=== PATIENT | male | born 1965 | race Hispanic/Latino ===

== ENCOUNTER 2019-01-12 10:28 | Emergency (ER) | payer SELFPAY ==
[2019-01-12] MEDS ORDERED: CEFAZOLIN SODIUM 1 GM/VIAL ONE (12:32)
[2019-01-12] MEDS ORDERED: LIDOCAINE 1% 20 ML MDV ONE (12:33)
[2019-01-12] MEDS ORDERED: TETANUS & DIPHTHERIA TOX,ADULT 0.5 ML VIAL ONE (12:33)
[2019-01-12] MEDS ORDERED: WATER FOR INJ,STERILE 10 ML ONE (12:33)
[2019-01-12] MEDS ORDERED: SMZ./TMP. 800/160 MG TABLET ONE (12:33)
--- NOTE | 2019-01-12 12:39 | RAD REPORT ---
EXAM DESCRIPTION: RAD - Hand Right 3 View - 01/12/2019 12:30 pm CLINICAL HISTORY: PAIN Laceration COMPARISON: No comparisons FINDINGS: Prominent soft tissue swelling affects the second finger. Small radiodensity is seen proje cting along the palmar aspect of the finger at the level of the middle phalanx which may be a small f oreign body. No fracture seen.
--- NOTE | 2019-01-12 13:27 | ER ---
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 Transition of care: patient was not received from another setting of care. Onset of symptoms was January 12, 2019. Risk Assessment: Do you want to hurt yourself or someone else? Patient reports no desire to harm self or others. Initial Sepsis Screen: Does the patient meet any 2 criteria? No. Patient's initial sepsis screen is negative. Does the patient have a suspected source of infection? No. Patient's initial sepsis screen is negative. Care prior to arrival: None. 11:25 Method Of Arrival: Ambulatory iw 11:25 Acuity: ELIU 4 iw Triage Assessment: 12:05 General: Appears in no apparent distress. comfortable, Behavior is calm, cooperative, bp appropriate for age. Pain: Complains of pain in right hand. Historical: - Allergies: 11:27 No Known Allergies; iw - Home Meds: 11:27 None [Active]; iw - PMHx: 11:27 None; iw - PSHx: 11:27 None; iw - Immunization history:: Adult Immunizations Last tetanus immunization: Last tetanus immunization: unknown. - Social history:: Smoking status: Patient uses tobacco products. - Ebola Screening: : Patient negative for fever greater than or equal to 101.5 degrees Fahrenheit, and additional compatible Ebola Virus Disease symptoms Patient denies exposure to infectious person Patient denies travel to an Ebola-affected area in the 21 days before illness onset No symptoms or risks identified at this time. - Family history:: not pertinent. Screenin:30 Abuse screen: Denies threats or abuse. Denies injuries from another. Nutritional bp screening: No deficits noted. Tuberculosis screening: No symptoms or risk factors identified. Fall Risk None identified. 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 bp 12:33 Reassessment: LAC REPAIR PENDING, OTHER ORDERS COMPLETED. bp 14:02 Reassessment: PT D/C HOME AMBULATORY WITH FAMILY, DX WITH FINGER LAC. bp Vital Signs: 11:27 BP 122 / 79; Pulse 61; Resp 16; Temp 98.0; Pulse Ox 100% ; Weight 113.4 kg; Height 5 iw ft. 8 in. (172.72 cm); Pain 5/10; 12:30 BP 103 / 64; Pulse 52; Resp 14; Pulse Ox 98% ; bp 14:03 BP 102 / 77; Pulse 53; Resp 14; Pulse Ox 98% ; bp 11:27 Body Mass Index 38.01 (113.40 kg, 172.72 cm) iw ED Course: 10:31 Patient arrived in ED. mr 11:27 Triage completed. iw 11:27 Arm band placed on. iw 11:30 Patient has correct armband on for positive identification. Bed in low position. Call bp light in reach. Side rails up X2. Adult w/ patient. 11:56 Davon Ojeda, BELKYS is Primary Nurse. bp 11:57 Damien Levi MD is Attending Physician. hellen 12:29 X-ray completed. Portable x-ray completed in exam room. Patient tolerated procedure jb2 well. 12:31 Hand Right 3 View XRAY In Process Unspecified. EDMS 13:00 Assist provider with laceration repair on MCP of right index finger that was 2.5 cm. or bp less using sutures. Set up tray. Performed by Damien Levi MD Dressed with [place]. Patient did not have IV access during this emergency room visit. 13:26 Julius Lipscomb MD is Referral Physician. hellen 13:35 Dressings: [place] x 1 right hand and MCP of right index finger non-adherent dressing. 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 Exp: bp 12/09/2020. Lot #: [id number]. } Route: IM; Site: left deltoid; 12:32 Follow up: Response: No adverse reaction bp 12:15 Drug: Ancef 1 grams Route: IM; Site: left deltoid; bp 12:32 Follow up: Response: No adverse reaction bp 12:15 Drug: Bactrim (160 mg-800 mg (DS) 1 tablet Route: PO; bp 12:32 Follow up: Response: No adverse reaction bp 12:15 Drug: Lidocaine (2 %) 8 ml {Note: AT B/S.} Volume: 5 ml; Route: Infiltration; bp Outcome: 13:26 Discharge ordered by . hellen 14:03 Discharged to home ambulatory, with family. bp 14:03 Condition: stable 14:03 Discharge instructions given to patient, Instructed on discharge instructions, follow up and referral plans. medication usage, Demonstrated understanding of instructions, follow-up care, medications, Prescriptions given X 3. 14:04 Patient left the ED. bp Signatures: Dispatcher [employer] EDMS Damien Levi MD MD cha Rivera, Hope [email or web address] Cari Gee, RN RN Dana Weathers [facility] Davon Ojeda RN RN bp
--- NOTE | 2019-01-12 13:27 | EDPHYS ---
Physician Documentation [facility] Name: Michael Hauser Age: 53 yrs Sex: Male : 1965 Arrival Date: 01/12/2019 Time: 10:31 Bed 16 Private MD: BRIELLE Physician Damien Levi HPI: 01/12 12:01 This 53 yrs old Male presents to ER via Ambulatory with complaints of finger hellen lacration. 12:01 The patient or guardian reports decreased range of motion, injury, a laceration, pain. hellen The complaints affect the MCP of right index finger. Context: The problem was sustained at home. Onset: The symptoms/episode began/occurred yesterday, 1 day(s) ago. Modifying factors: The symptoms are alleviated by elevation, the symptoms are aggravated by movement, dependent position. Associated signs and symptoms: The patient has no apparent associated signs or symptoms. Severity of symptoms: At their worst the symptoms were moderate, in the emergency department the symptoms are unchanged. The patient has experienced a previous episode. Historical: - Allergies: 11:27 No Known Allergies; iw - Home Meds: 11:27 None [Active]; iw - PMHx: 11:27 None; iw - PSHx: 11:27 None; iw - Immunization history:: Adult Immunizations Last tetanus immunization: Last tetanus immunization: unknown. - Social history:: Smoking status: Patient uses tobacco products. - Ebola Screening: : Patient negative for fever greater than or equal to 101.5 degrees Fahrenheit, and additional compatible Ebola Virus Disease symptoms Patient denies exposure to infectious person Patient denies travel to an Ebola-affected area in the 21 days before illness onset No symptoms or risks identified at this time. - Family history:: not pertinent. ROS: 12:01 Constitutional: Negative for fever, chills, and weight loss, Eyes: Negative for injury, hellen pain, redness, and discharge, ENT: Negative for injury, pain, and discharge, Neck: Negative for injury, pain, and swelling, Cardiovascular: Negative for chest pain, palpitations, and edema, Respiratory: Negative for shortness of breath, cough, wheezing, and pleuritic chest pain, Abdomen/GI: Negative for abdominal pain, nausea, vomiting, diarrhea, and constipation, Back: Negative for injury and pain, : Negative for injury, bleeding, discharge, and swelling, Skin: Negative for injury, rash, and discoloration, Neuro: Negative for headache, weakness, numbness, tingling, and seizure, Psych: Negative for depression, anxiety, suicide ideation, homicidal ideation, and hallucinations, Allergy/Immunology: Negative for hives, rash, and allergies, Endocrine: Negative for neck swelling, polydipsia, polyuria, polyphagia, and marked weight changes, Hematologic/Lymphatic: Negative for swollen nodes, abnormal bleeding, and unusual bruising. 12:01 MS/extremity: Positive for injury or acute deformity, laceration, pain, of the dorsal aspect of proximal phalanx of right index finger. Exam: 12:01 Constitutional: This is a well developed, well nourished patient who is awake, alert, hellen and in no acute distress. Head/Face: Normocephalic, atraumatic. Eyes: Pupils equal round and reactive to light, extra-ocular motions intact. Lids and lashes normal. Conjunctiva and sclera are non-icteric and not injected. Cornea within normal limits. Periorbital areas with no swelling, redness, or edema. ENT: Nares patent. No nasal discharge, no septal abnormalities noted. Tympanic membranes are normal and external auditory canals are clear. Oropharynx with no redness, swelling, or masses, exudates, or evidence of obstruction, uvula midline. Mucous membranes moist. Neck: Trachea midline, no thyromegaly or masses palpated, and no cervical lymphadenopathy. Supple, full range of motion without nuchal rigidity, or vertebral point tenderness. No Meningismus. Chest/axilla: Normal chest wall appearance and motion. Nontender with no deformity. No lesions are appreciated. Cardiovascular: Regular rate and rhythm with a normal S1 and S2. No gallops, murmurs, or rubs. Normal PMI, no JVD. No pulse deficits. Respiratory: Lungs have equal breath sounds bilaterally, clear to auscultation and percussion. No rales, rhonchi or wheezes noted. No increased work of breathing, no retractions or nasal flaring. Abdomen/GI: Soft, non-tender, with normal bowel sounds. No distension or tympany. No guarding or rebound. No evidence of tenderness throughout. Back: No spinal tenderness. No costovertebral tenderness. Full range of motion. Male : Normal genitalia with no discharge or lesions. MS/ Extremity: Pulses equal, no cyanosis. Neurovascular intact. Full, normal range of motion. Neuro: Awake and alert, GCS 15, oriented to person, place, time, and situation. Cranial nerves II-XII grossly intact. Motor strength 5/5 in all extremities. Sensory grossly intact. Cerebellar exam normal. Normal gait. Psych: Awake, alert, with orientation to person, place and time. Behavior, mood, and affect are within normal limits. 12:01 Skin: injury, avulsion(s), laceration(s), the wound is approximately 2.5 cm(s), with a depth of .25 cm(s), of the dorsal aspect of proximal phalanx of right index finger, that can be described as Vital Signs: 11:27 BP 122 / 79; Pulse 61; Resp 16; Temp 98.0; Pulse Ox 100% ; Weight 113.4 kg; Height 5 iw ft. 8 in. (172.72 cm); Pain 5/10; 12:30 BP 103 / 64; Pulse 52; Resp 14; Pulse Ox 98% ; bp 14:03 BP 102 / 77; Pulse 53; Resp 14; Pulse Ox 98% ; bp 11:27 Body Mass Index 38.01 (113.40 kg, 172.72 cm) iw Laceration: 12:01 Wound Repair of 3cm ( 1.2in ) subcutaneous laceration to dorsal aspect of proximal hellen phalanx of right index finger and MCP of right index finger. Irregularly shaped.. Skin/tissue flap noted.. Distal neuro/vascular/tendon intact. Anesthesia: Digital block administered with 8 mls of 1% lidocaine. Wound prep: Extensive cleansing with betadine by md. Skin closed with 4 5-0 Prolene using interrupted sutures and sterile technique. Dressed with Neosporin, non-adherent dressing. Patient tolerated well. MDM: 11:57 Patient medically screened. [facility] 12:05 Data reviewed: vital signs, nurses notes, radiologic studies, plain films. 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 Exp: bp 12/09/2020. Lot #: [id number]. } Route: IM; Site: left deltoid; 12:32 Follow up: Response: No adverse reaction bp 12:15 Drug: Ancef 1 grams Route: IM; Site: left deltoid; bp 12:32 Follow up: Response: No adverse reaction bp 12:15 Drug: Bactrim (160 mg-800 mg (DS) 1 tablet Route: PO; bp 12:32 Follow up: Response: No adverse reaction bp 12:15 Drug: Lidocaine (2 %) 8 ml {Note: AT B/S.} Volume: 5 ml; Route: Infiltration; bp Disposition: 01/12/19 13:26 Discharged to Home. Impression: Laceration without foreign body of right hand - medial index finger, greater 18 hours. - Condition is Stable. - Discharge Instructions: Laceration Care, Adult, Laceration Care, Adult, [id number]. - Prescriptions for Keflex 500 mg Oral Capsule - take 1 capsule by ORAL route every 6 hours for 10 days; 40 capsule. Tylenol- Codeine #3 300-30 mg Oral Tablet - take 2 tablet by ORAL route every 6 hours As needed; 30 tablet. Bactrim DS 800- 160 mg Oral Tablet - take 1 tablet by ORAL route every 12 hours for 10 days; 20 tablet. - Medication Reconciliation Form, Thank You Letter, Antibiotic Education, Prescription Opioid Use form. - Follow up: Private Physician; When: 1 - 2 days; Reason: Recheck today's complaints, Re-evaluation by your physician. Follow up: Julius Lipscomb; When: 1 - 2 days; Reason: Recheck today's complaints, Re-evaluation by your physician. - Problem is new. - Symptoms have improved. Signatures: Dispatcher [employer] EDDamien Carroll MD MD cha Williams, Irene, Davon Cabrera RN, RN RN bp Corrections: (The following items were deleted from the chart) 14:04 13:26 01/12/2019 13:26 Discharged to Home. Impression: Laceration without foreign body bp of right hand - medial index finger, greater 18 hours. Condition is Stable. Discharge Instructions: Laceration Care, Adult, Laceration Care, Adult, [id number]. Prescriptions for Keflex 500 mg Oral Capsule - take 1 capsule by ORAL route every 6 hours for 10 days; 40 capsule, Tylenol-Codeine #3 300-30 mg Oral Tablet - take 2 tablet by ORAL route every 6 hours As needed; 30 tablet, Bactrim DS 800-160 mg Oral Tablet - take 1 tablet by ORAL route every 12 hours for 10 days; 20 tablet. and Forms are Medication Reconciliation Form, Thank You Letter, Antibiotic Education, Prescription Opioid Use. Follow up: Private Physician; When: 1 - 2 days; Reason: Recheck today's complaints, Re-evaluation by your physician. Follow up: Julius Lipscomb; When: 1 - 2 days; Reason: Recheck today's complaints, Re-evaluation by your physician. Problem is new. Symptoms have improved. hellen
== END 2019-01-12 14:04 | disposition home or self-care (01) ==
LOC: ER 10:28
PROC: 0JQJ0ZZ Repair Right Hand Subcutaneous Tissue and Fascia, Open Approach (ICD-10-PCS; principal; 2019-01-12)
DX: S61.210A Laceration without foreign body of right index finger without damage to nail, initial encounter (principal); W45.8XXA Other foreign body or object entering through skin, initial encounter; Y93.9 Activity, unspecified; Y92.009 Unspecified place in unspecified non-institutional (private) residence as the place of occurrence of the external cause; Z23 Encounter for immunization; Z72.0 Tobacco use
CPT/HCPCS: 90714; 96372; 99284; J0690

== ENCOUNTER 2021-03-22 21:43 | Emergency (ER) | payer SELFPAY ==
[2021-03-23 01:23] LABS: Absolute Lymphocytes (CBC) 1.6 K/uL (0.7-4.9); Basophils % 0.9 % (0-1.3); Hematocrit 43.9 % (39.6-49.0); Lymphocytes % 22.4 % (15.3-44.8); MPV 9.5 fL (7.6-11.3); RBC Red Blood Cell Count 4.72 M/uL (4.33-5.43)
[2021-03-23 01:26] LABS: Protime INR 0.98
[2021-03-23 01:38] LABS: ALT/SGPT 32 U/L (12-78); AST/SGOT 20 U/L (15-37); Albumin 3.9 g/dL (3.4-5.0); Alkaline Phosphatase 94 U/L (45-117); BUN Blood Urea Nitrogen 21 mg/dL (7-18); Bicarbonate 28 mmol/L (21-32); Bilirubin Direct < 0.1 mg/dL (0-0.2); Bilirubin Total 0.4 mg/dL (0.2-1.0); Glucose Level 110 mg/dL (74-106); Magnesium 2.8 mg/dL (1.8-2.4); NT PRO-BNP 16 pg/mL (<125); Potassium 4.5 mmol/L (3.5-5.1); Protein, Total 7.6 g/dL (6.4-8.2); Sodium Level 145 mmol/L (136-145); Troponin (Emerg Dept Use Only) < 0.02 ng/mL (0.0-0.045)
[2021-03-23] MEDS ORDERED: MECLIZINE HCL 12.5 MG TAB ONE (03:46)
--- NOTE | 2021-03-23 04:04 | EDPHYS ---
Physician Documentation [facility] Name: Michael Hauser Age: 55 yrs Sex: Male : 1965 Arrival Date: 03/22/2021 Time: 21:44 Bed 15 Private MD: ED Physician Billy Raya HPI: 03/23 01:18 This 55 yrs old Male presents to ER via Ambulatory with complaints of mh7 Dizziness. 01:18 The patient presents with dizziness, sense of spinning. Onset: The symptoms/episode mh7 began/occurred 1 week(s) ago. Context: occurred at home, occurred while the patient was sitting, just prior to the episode the patient experienced no apparent symptoms. Modifying factors: The symptoms are alleviated by nothing, the symptoms are aggravated by movement of head, changing position. 01:20 Associated signs and symptoms: Pertinent positives: abdominal pain, headache, mh7 generalized weakness, Pertinent negatives: agitation, ataxia, blurred vision, chest pain, combativeness, confusion, diaphoresis, focal weakness, head injury, nausea, near-syncope, numbness, palpitations, , seizure, shortness of breath, syncope, tingling, vomiting. Severity of symptoms: At their worst the symptoms were moderate 2 day(s) ago, in the emergency department the symptoms are unchanged. Patient's baseline: Neuro: alert and fully oriented, Motor: no deficits, Ambulation: walks without assistance, Speech: normal. Historical: - Allergies: 03/22 23:07 No Known Allergies; iw - Home Meds: 23:07 None [Active]; iw - PMHx: 23:07 None; iw - PSHx: 23:07 None; iw - Immunization history:: Adult Immunizations not up to date. - Social history:: Smoking status: Patient reports the use of cigarette tobacco products, denies chronic smoking, but will smoke occasionally. ROS: 03/23 01:20 Constitutional: Negative for fever, chills, and weight loss, Eyes: Negative for injury, mh7 pain, redness, and discharge, ENT: Negative for injury, pain, and discharge, Neck: Negative for injury, pain, and swelling, Cardiovascular: Negative for chest pain, palpitations, and edema, Respiratory: Negative for shortness of breath, cough, wheezing, and pleuritic chest pain, Abdomen/GI: Negative for abdominal pain, nausea, vomiting, diarrhea, and constipation, Back: Negative for injury and pain, : Negative for injury, bleeding, discharge, and swelling, MS/Extremity: Negative for injury and deformity, Skin: Negative for injury, rash, and discoloration, Psych: Negative for depression, anxiety, suicide ideation, homicidal ideation, and hallucinations, Allergy/Immunology: Negative for hives, rash, and allergies, Endocrine: Negative for neck swelling, polydipsia, polyuria, polyphagia, and marked weight changes, Hematologic/Lymphatic: Negative for swollen nodes, abnormal bleeding, and unusual bruising. Exam: 01:20 Constitutional: This is a well developed, well nourished patient who is awake, alert, mh7 and in no acute distress. Head/Face: Normocephalic, atraumatic. Eyes: Pupils equal round and reactive to light, extra-ocular motions intact. Lids and lashes normal. Conjunctiva and sclera are non-icteric and not injected. Cornea within normal limits. Periorbital areas with no swelling, redness, or edema. ENT: Nares patent. No nasal discharge, no septal abnormalities noted. Tympanic membranes are normal and external auditory canals are clear. Oropharynx with no redness, swelling, or masses, exudates, or evidence of obstruction, uvula midline. Mucous membranes moist. Neck: Trachea midline, no thyromegaly or masses palpated, and no cervical lymphadenopathy. Supple, full range of motion without nuchal rigidity, or vertebral point tenderness. No Meningismus. Chest/axilla: Normal chest wall appearance and motion. Nontender with no deformity. No lesions are appreciated. Cardiovascular: Regular rate and rhythm with a normal S1 and S2. No gallops, murmurs, or rubs. Normal PMI, no JVD. No pulse deficits. Respiratory: Lungs have equal breath sounds bilaterally, clear to auscultation and percussion. No rales, rhonchi or wheezes noted. No increased work of breathing, no retractions or nasal flaring. 01:20 Back: No spinal tenderness. No costovertebral tenderness. Full range of motion. Skin: Warm, dry with normal turgor. Normal color with no rashes, no lesions, and no evidence of cellulitis. MS/ Extremity: Pulses equal, no cyanosis. Neurovascular intact. Full, normal range of motion. Neuro: Awake and alert, GCS 15, oriented to person, place, time, and situation. Cranial nerves II-XII grossly intact. Motor strength 5/5 in all extremities. Sensory grossly intact. Cerebellar exam normal. Normal gait. Psych: Awake, alert, with orientation to person, place and time. Behavior, mood, and affect are within normal limits. 01:20 Abdomen/GI: Inspection: obese Bowel sounds: normal, in all quadrants, Palpation: moderate abdominal tenderness, in the left lower quadrant, mass, is not appreciated, rebound tenderness, is not appreciated, voluntary guarding, is not appreciated, involuntary guarding, is not appreciated, no appreciated organomegaly, Rectal exam: the exam is deferred, because of patient request, Indicators: McBurney's point is not tender, Espinoza's sign is negative, Rovsing's sign is negative, Obturator sign is negative, Psoas sign is negative, Liver: no appreciated palpable abnormalities, Hernia: not appreciated. Vital Signs: 03/22 23:05 BP 119 / 79; Pulse 64; Resp 16; Temp 97.9; Pulse Ox 100% on R/A; Weight 108.86 kg; iw 03/23 01:16 BP 127 / 83; Pulse 91; Resp 18; Pulse Ox 98% ; ea 03:30 BP 115 / 74; Pulse 53; Resp 18; Pulse Ox 98% ; ea 04:12 BP 127 / 86; Pulse 57; Resp 19; Pulse Ox 98% ; ea MDM: 04:01 Differential diagnosis: cardiac arrhythmia, hypovolemia, idiopathic dizziness, mh7 near-syncope, syncope, vertigo. Data reviewed: vital signs, nurses notes, lab test result(s), cardiac enzymes, CBC, electrolytes, urinalysis, EKG, radiologic studies, CT scan, plain films. Data interpreted: Pulse oximetry: on room air is 98 %. Interpretation: normal. Counseling: I had a detailed discussion with the patient and/or guardian regarding: the historical points, exam findings, and any diagnostic results supporting the discharge/admit diagnosis, lab results, radiology results, the need for outpatient follow up, to return to the emergency department if symptoms worsen or persist or if there are any questions or concerns that arise at home. Response to treatment: the patient's symptoms have resolved after treatment, the patient's blood pressure is in an acceptable range, mental status has returned to baseline, the patient no longer shows bradycardia, the patient is not short of breath, the patient is not tachycardic, the patient's pain is gone, the patient's temperature has normalized. 04:03 Patient medically screened. 03/23 00:51 Order name: Basic Metabolic Panel [facility] 03/23 00:51 Order name: CBC with Diff; Complete Time: 01:44 [facility] 03/23 00:51 Order name: LFT's [facility] 03/23 00:51 Order name: Magnesium [facility] 03/23 00:51 Order name: NT PRO-BNP [facility] 03/23 00:51 Order name: PT-INR; Complete Time: 01:44 [facility] 03/23 00:51 Order name: Troponin (emerg Dept Use Only); Complete Time: 01:44 [facility] 03/23 00:51 Order name: XRAY Chest (1 view) [facility] 03/23 00:51 Order name: CT Head Brain wo Cont [facility] 03/23 00:51 Order name: CT Abd/Pelvis - IV Contrast Only [facility] 03/23 00:52 Order name: Basic Metabolic Panel; Complete Time: 01:44 [facility] 03/23 00:52 Order name: Liver (Hepatic) Function; Complete Time: 01:44 [facility] 03/23 00:52 Order name: Magnesium; Complete Time: 01:44 [facility] 03/23 00:52 Order name: NT PRO-BNP; Complete Time: 01:44 [facility] 03/23 00:51 Order name: EKG; Complete Time: 00:52 03/23 00:51 Order name: Cardiac monitoring; Complete Time: 01:17 03/23 00:51 Order name: EKG - Nurse/Tech; Complete Time: 01:17 03/23 00:51 Order name: IV Saline Lock; Complete Time: 01:17 [facility] 03/23 00:51 Order name: Labs collected and sent; Complete Time: :17 03/23 00:51 Order name: O2 Per Protocol; Complete Time: :17 03/23 00:51 Order name: O2 Sat Monitoring; Complete Time: 01:17 Administered Medications: 03:29 Drug: Meclizine 25 mg Route: PO; ea 04:13 Follow up: Response: No adverse reaction ea Disposition: 03/23/21 04:03 Discharged to Home. Impression: Vertigo, Lower abdominal pain, unspecified. - Condition is Stable. - Discharge Instructions: Abdominal Pain, Adult, Mhpn-[id number], Vertigo, Rxeh-he-[id number]. - Prescriptions for Meclizine 25 mg Oral Tablet - take 1 tablet by ORAL route every 8 hours As needed; 20 tablet. - Work release form, Medication Reconciliation Form, Thank You Letter, Antibiotic Education, Prescription Opioid Use form. - Follow up: Private Physician; When: 1 - 2 days; Reason: Worsening of condition, Recheck today's complaints, Continuance of care, Re-evaluation by your physician. Follow up: Anita Farley MD; When: 2 - 3 days; Reason: Worsening of condition, Recheck today's complaints. - Problem is new. - Symptoms have improved. Signatures: Dispatcher [employer] EDCari Olivo RN RN iw Antunez, Elena, RN RN ea Holmes, Maurice, MD MD mh7 Corrections: (The following items were deleted from the chart) 04:17 04:03 03/23/2021 04:03 Discharged to Home. Impression: Vertigo; Lower abdominal pain, ea unspecified. Condition is Stable. Forms are Medication Reconciliation Form, Thank You Letter, Antibiotic Education, Prescription Opioid Use. Follow up: Private Physician; When: 1 - 2 days; Reason: Worsening of condition, Recheck today's complaints, Continuance of care, Re-evaluation by your physician. Follow up: Anita Farley; When: 2 - 3 days; Reason: Worsening of condition, Recheck today's complaints. Problem is new. Symptoms have improved. mh7
--- NOTE | 2021-03-23 04:04 | ER ---
Nurse's Notes [facility] [place], [place] Name: Michael Hauser Age: 55 yrs Sex: Male : 1965 Arrival Date: 03/22/2021 Time: 21:44 Bed 15 Private MD: Diagnosis: Vertigo;Lower abdominal pain, unspecified Presentation: 03/22 23:05 Chief complaint: Patient states: feeling very dizzy and his legs are very weak, started iw a week ago, no vomiting or diarrhea, eating and drinking well. Coronavirus screen: At this time, the client does not indicate any symptoms associated with coronavirus-19. Ebola Screen: Patient negative for fever greater than or equal to 101.5 degrees Fahrenheit, and additional compatible Ebola Virus Disease symptoms Patient denies exposure to infectious person. Patient denies travel to an Ebola-affected area in the 21 days before illness onset. No symptoms or risks identified at this time. Initial Sepsis Screen: Does the patient meet any 2 criteria? No. Patient's initial sepsis screen is negative. Does the patient have a suspected source of infection? No. Patient's initial sepsis screen is negative. Risk Assessment: Do you want to hurt yourself or someone else? Patient reports no desire to harm self or others. Onset of symptoms was March 15, 2021. 23:05 Method Of Arrival: Ambulatory iw 23:05 Acuity: ELIU 3 iw Historical: - Allergies: 23:07 No Known Allergies; iw - Home Meds: 23:07 None [Active]; iw - PMHx: 23:07 None; iw - PSHx: 23:07 None; iw - Immunization history:: Adult Immunizations not up to date. - Social history:: Smoking status: Patient reports the use of cigarette tobacco products, denies chronic smoking, but will smoke occasionally. Screenin/29 01:10 Abuse screen: Denies threats or abuse. Nutritional screening: No deficits noted. ea Tuberculosis screening: No symptoms or risk factors identified. Fall Risk None identified. Assessment: 01:10 General: Appears in no apparent distress. Behavior is appropriate for age. Pain: Denies ea pain. Neuro: Level of Consciousness is awake, alert, obeys commands, Oriented to person, place, time, situation, Reports dizziness. Cardiovascular: Patient's skin is warm and dry. Respiratory: Airway is patent Respiratory effort is even, unlabored, Respiratory pattern is regular, symmetrical. Derm: Skin is pink, warm \T\ dry. 04:11 Reassessment: Patient and/or family updated on plan of care and expected duration. Pain ea level reassessed. Patient is alert, oriented x 3, equal unlabored respirations, skin warm/dry/pink. Discharge instruction given to patient verbalized the understanding of instruction. pt left ED accompanied by family. Vital Signs: 03/22 23:05 BP 119 / 79; Pulse 64; Resp 16; Temp 97.9; Pulse Ox 100% on R/A; Weight 108.86 kg; iw 03/23 01:16 BP 127 / 83; Pulse 91; Resp 18; Pulse Ox 98% ; ea 03:30 BP 115 / 74; Pulse 53; Resp 18; Pulse Ox 98% ; ea 04:12 BP 127 / 86; Pulse 57; Resp 19; Pulse Ox 98% ; ea ED Course: 03/22 21:44 Patient arrived in ED. am4 23:06 Triage completed. iw 23:07 Arm band placed on. iw 03/23 00:34 Leeanne Sagastume, BELKYS is Primary Nurse. ea 00:35 Billy Raya MD is Attending Physician. 7 01:10 Patient has correct armband on for positive identification. Bed in low position. Call ea light in reach. Side rails up X2. 01:10 Inserted saline lock: 20 gauge in left antecubital area, using aseptic technique. Blood ea collected. 02:12 XRAY Chest (1 view) In Process Unspecified. EDMS 02:19 CT Head Brain wo Cont In Process Unspecified. EDMS 02:19 CT Abd/Pelvis - IV Contrast Only In Process Unspecified. EDMS 04:02 Anita Farley MD is Referral Physician. mh7 04:11 No provider procedures requiring assistance completed. IV discontinued, intact, ea bleeding controlled, No redness/swelling at site. Pressure dressing applied. Administered Medications: 03:29 Drug: Meclizine 25 mg Route: PO; ea 04:13 Follow up: Response: No adverse reaction ea Outcome: 04:03 Discharge ordered by . mh7 04:11 Discharged to home ambulatory, with family. ea 04:11 Condition: stable 04:11 Discharge instructions given to patient, Instructed on discharge instructions, follow up and referral plans. medication usage, Demonstrated understanding of instructions, follow-up care, medications, Prescriptions given X 3. 04:17 Patient left the ED. radha Signatures: Dispatcher [employer] Cari Velarde RN RN iw Antunez, Elena, RN RN ea Holmes, Maurice, MD MD 7 Iliana [facility]
[2021-03-23 04:24] VITALS: TEMP 97.9
[2021-03-23 04:25] VITALS: O2SAT 98
[2021-03-23 04:28] VITALS: BP 127/86
--- NOTE | 2021-03-23 08:22 | RAD REPORT ---
EXAM DESCRIPTION: Jose M Single View03/23/2021 2:12 am CLINICAL HISTORY: Chest pain COMPARISON: none FINDINGS: The lungs appear clear of acute infiltrate. The heart is mildly enlarged IMPRESSION: No acute abnormalities displayed
--- NOTE | 2021-03-23 21:25 | RAD REPORT ---
EXAM DESCRIPTION: CT - Head Brain Wo Cont - 03/23/2021 6:29 am CLINICAL HISTORY: DIZZINESS COMPARISON: None available TECHNIQUE: Axial CT of the head obtained from the skull apex to the skull base without contrast. Thi s exam was performed according to our departmental dose-optimization program, which includes automate d exposure control, adjustment of the mA and/or kV according to patient size and/or use of iterative reconstruction technique. FINDINGS: No acute intracranial hemorrhage identified. No mass, mass effect, shift of the midline, a bnormal extra-axial fluid collection or CT evidence of acute ischemic change identified. The ventricu lar system is unremarkable. No acute abnormalities of the supratentorial white matter, basal gangli a, cerebellum, or brainstem. The visualized paranasal sinuses and the mastoid air cells are relatively well aerated. No skull fr acture identified. Visualized orbits and globes are unremarkable. IMPRESSION: 1. No acute intracranial abnormality identified. Electronically signed by: Levi Ernst 03/23/2021 2:42 AM CDT Due to temporary technical issues with the PACS/Fluency reporting system, reports are being signed by the in house radiologists without review as a courtesy to insure prompt reporting. The interpreting radiologist is fully responsible for the content of the report.
--- NOTE | 2021-03-23 21:27 | RAD REPORT ---
EXAM DESCRIPTION: CT - Abdomen Pelvis W Contrast - 03/23/2021 6:29 am CLINICAL HISTORY: ABD PAIN COMPARISON: None Available. TECHNIQUE: CT of the abdomen and pelvis performed following IV administration of iodinated contras t. Mild motion artifact. This exam was performed according to our departmental dose-optimization prog brittani, which includes automated exposure control, adjustment of the mA and/or kV according to patient s ize and/or use of iterative reconstruction technique. FINDINGS: Lung Bases: The visualized lung bases are clear. Bones: No destructive bone lesions identified. Abdomen: Liver: The liver has normal size and density. No intrahepatic biliary dilatation. Gallbladder: No calcified gallstones. Spleen, Pancreas, and Adrenal Glands: The spleen, pancreas, and adrenal glands are unremarkable. Kidneys: No hydronephrosis or obstructing calculus. Vasculature: The aorta and IVC have normal caliber and position. The portal vein is patent. The pro ximal visceral and renal arteries are patent. Stomach: The stomach and duodenum have normal course. Other: No free intraperitoneal air. No free fluid or lymphadenopathy. Pelvis: Bladder: Urinary bladder is unremarkable. Bowel: No dilated loops of large or small bowel. Appendix: Normal appendix. Pelvis: Prostate is not enlarged. Findings destruction the left gluteal region of indeterminate etiol ogy. IMPRESSION: 1. No acute inflammatory or obstructive process identified. Electronically signed by: Levi Ernst 03/23/2021 2:48 AM CDT Due to temporary technical issues with the PACS/Fluency reporting system, reports are being signed by the in house radiologists without review as a courtesy to insure prompt reporting. The interpreting radiologist is fully responsible for the content of the report.
--- NOTE | 2021-03-27 12:09 | EKG ---
Test Date: 2021-03-23 Test Time: 01:00:21 Lead Applications Developer: GRISELDA MEASUREMENT RESULTS: Intervals: Rate: 57 DC: 166 QRSD: 98 QT: 432 QTc: 420 [place]: P: 56 DC: 166 QRS: 70 T: 47 INTERPRETIVE STATEMENTS: Sinus bradycardia Otherwise normal ECG Electronically Signed On 03-27-21 11:55:36 CDT by Hay Wilkinson
== END 2021-03-23 04:17 | disposition home or self-care (01) ==
LOC: ER 21:43
DX: R42 Dizziness and giddiness (principal); R10.30 Lower abdominal pain, unspecified; F17.210 Nicotine dependence, cigarettes, uncomplicated
CPT/HCPCS: 36415; 70450; 71045; 74177; 80048; 80076; 83735; 83880; 84484; 85025; 85610; 93005; 99284; Q9967